=== PATIENT | male | born 1955 | race Caucasian/White ===

== ENCOUNTER 2017-03-10 08:40 | Observation (INO) | payer BC, OTHER ==
[2017-03-10] MEDS ORDERED: NORMAL SALINE 1,000 ML IV ONE ×2 (09:42→11:27)
--- OUTSIDE RECORDS SUMMARY | 2017-03-10 09:46 | XMS REPORT | Clinical Summary ---
:1955 Author Organization [employer] Address Unavailable [place] Patric[place] [address] Care Team Providers Name Role Phone Unavailable Primary Care Provider Unavailable Source Comments This disclosure is being made pursuant to the Bit9 program and maynot contain all information available regarding this patient.[facility] Allergies Not on File Current Medications Be aware that medications may not be up to date as of this document. Alwaysverify current medications with the patient. Prescription Sig. Disp. Refills Start Date End Date Status bicalutamide (CASODEX) Take 1 tablet by 90 tablet 3 10/02/2016 Active 50 MG tablet mouth 3 (three) times daily. fenofibrate (TRICOR) Take 1 tablet by 90 tablet 3 11/02/2016 Active 54 MG tablet mouth daily. metFORMIN (GLUCOPHAGE) Take 1 tablet by 180 tablet 1 12/22/2016 Active 500 MG tablet mouth 2 (two) times daily with meals. zolpidem (AMBIEN) 5 MG Take 1 tablet (5 30 tablet 0 12/24/2016 Active tablet mg total) by mouth nightly as needed for Sleep. lisinopril Take 1 tablet by 90 tablet 0 01/14/2017 Active (PRINIVIL,ZESTRIL) 10 mouth daily. MG tablet Active Problems Not on file Encounters Date Type Specialty Care Team Description 01/14/2017 Refill Family Medicine Caro Sorenson CMA 12/24/2016 Refill Family Medicine Covert, PARESH Suárez 12/22/2016 Refill Family Medicine Caro Sorenson CMA from Last 3 Months Family History Medical History Relation Name Comments Other Other Heart disease - All Family: Noted on 2010-06-16 15:37:48 Relation Name Status Comments Other Social History Tobacco Use Types Packs/Day Years Used Date Former Smoker Sex Assigned at Date Recorded Not on file Last Filed Vital Signs Not on file Plan of Treatment Health Maintenance Due Date Last Done Comments Hepatitis C Screening 1971 Tetanus/Pertussis (1 - Tdap) 1972 Well Adult Visit 2003 Zoster Vaccine 60+ 2013 Colon CA Screening-Colonoscopy 09/23/2016 09/23/2006 INFLUENZA IMMUNIZATION (#1) 2017 Results Not on filefrom Last 3 Months Insurance Payer Benefit Plan / Subscriber ID Type Phone Address Group [facility]AVA[facility] PPO [id number] PPO [phone] [id number] [place] [address] EMPLOYEE BENEFITS EMPLOYEE BENEFITS [id number] [phone] [address] [employer] [address] [place] [address] [phone] [place] [address]
--- OUTSIDE RECORDS SUMMARY | 2017-03-10 09:47 | XMS REPORT | Encounter Summary ---
:1955 Author Organization [employer] [place] [address] Care Team Providers Name Role Phone Unavailable Primary Care Provider Unavailable Reason for Visit Reason Comments Medication Refill Encounter Details Date Type Department Care Team Description 12/22/2016 [facility], [id number] [place] [address] [place] [address] Social History Tobacco Use Types Packs/Day Years Used Date Never Assessed Sex Assigned at Date Recorded Not on file as of this encounter Plan of Treatment Not on fileas of this encounter Visit Diagnoses Not on filein this encounter
--- OUTSIDE RECORDS SUMMARY | 2017-03-10 09:47 | XMS REPORT | Encounter Summary ---
:1955 Author Organization [employer] [place] [address] Care Team Providers Name Role Phone Unavailable Primary Care Provider Unavailable Reason for Visit Reason Comments Medication Refill Encounter Details Date Type Department Care Team Description 11/02/2016 Refill [facility] Caro Hawkins, [facility] Family Practice [address] [place] [address], [address] [place] [address] [place] [address] [phone] Social History Tobacco Use Types Packs/Day Years Used Date Never Assessed Sex Assigned at Date Recorded Not on file as of this encounter Plan of Treatment Not on fileas of this encounter Visit Diagnoses Not on filein this encounter
--- OUTSIDE RECORDS SUMMARY | 2017-03-10 09:47 | XMS REPORT | Encounter Summary ---
:1955 Author Organization [employer] [place] [address] Care Team Providers Name Role Phone Unavailable Primary Care Provider Unavailable Reason for Visit Reason Comments Medication Refill Encounter Details Date Type Department Care Team Description 11/23/2016 Refill [facility] Radha Duenas, sales project engineer [address] [place] [address], [address] [address] [place] [address] [phone] Social History Tobacco Use Types Packs/Day Years Used Date Never Assessed Sex Assigned at Date Recorded Not on file as of this encounter Plan of Treatment Not on fileas of this encounter Visit Diagnoses Not on filein this encounter
--- OUTSIDE RECORDS SUMMARY | 2017-03-10 09:47 | XMS REPORT | Encounter Summary ---
:1955 Author Organization [employer] [place] [address] Care Team Providers Name Role Phone Unavailable Primary Care Provider Unavailable Reason for Visit Reason Comments Medication Refill Encounter Details Date Type Department Care Team Description 01/14/2017 Refill [facility] Caro Hawkins, [facility] Family Practice [address] [place] [address], [address] [place] [address] [place] [address] [phone] Social History Tobacco Use Types Packs/Day Years Used Date Never Assessed Sex Assigned at Date Recorded Not on file as of this encounter Plan of Treatment Not on fileas of this encounter Visit Diagnoses Not on filein this encounter
--- OUTSIDE RECORDS SUMMARY | 2017-03-10 09:47 | XMS REPORT | Encounter Summary ---
:1955 Author Organization [employer] [place] [address] Care Team Providers Name Role Phone Unavailable Primary Care Provider Unavailable Reason for Visit Reason Comments Medication Refill Encounter Details Date Type Department Care Team Description 12/24/2016 Refill [facility] Charissa Oh RMA Family Practice [address] [place] [address], [address] [place] [address] [place] [address] [phone] Social History Tobacco Use Types Packs/Day Years Used Date Never Assessed Sex Assigned at Date Recorded Not on file as of this encounter Plan of Treatment Not on fileas of this encounter Visit Diagnoses Not on filein this encounter
--- OUTSIDE RECORDS SUMMARY | 2017-03-10 09:48 | XMS REPORT | Encounter Summary ---
:1955 Author Organization [employer] [place] [address] Care Team Providers Name Role Phone Unavailable Primary Care Provider Unavailable Reason for Visit Reason Comments Medication Refill Encounter Details Date Type Department Care Team Description 10/02/2016 Refill [facility] Caro Hawkins, [facility] Family Practice [address] [place] [address], [address] [place] [address] [place] [address] [phone] Social History Tobacco Use Types Packs/Day Years Used Date Never Assessed Sex Assigned at Date Recorded Not on file as of this encounter Plan of Treatment Not on fileas of this encounter Visit Diagnoses Not on filein this encounter
--- OUTSIDE RECORDS SUMMARY | 2017-03-10 09:48 | XMS REPORT | Encounter Summary ---
:1955 Author Organization [employer] [place] [address] Care Team Providers Name Role Phone Unavailable Primary Care Provider Unavailable Reason for Visit Reason Comments Medication Refill Encounter Details Date Type Department Care Team Description 10/02/2016 Refill [facility] Caro Hawkins, [facility] Family Practice [address] [place] [address], [address] [place] [address] [place] [address] [phone] Social History Tobacco Use Types Packs/Day Years Used Date Never Assessed Sex Assigned at Date Recorded Not on file as of this encounter Plan of Treatment Not on fileas of this encounter Visit Diagnoses Not on filein this encounter
--- OUTSIDE RECORDS SUMMARY | 2017-03-10 09:48 | XMS REPORT | Encounter Summary ---
:1955 Author Organization [employer] [place] [address] Care Team Providers Name Role Phone Unavailable Primary Care Provider Unavailable Reason for Visit Reason Comments Medication Refill Encounter Details Date Type Department Care Team Description 10/02/2016 Refill [facility] Charissa Oh RMA Family Practice [address] [place] [address], [address] [place] [address] [place] [address] [phone] Social History Tobacco Use Types Packs/Day Years Used Date Never Assessed Sex Assigned at Date Recorded Not on file as of this encounter Plan of Treatment Not on fileas of this encounter Visit Diagnoses Not on filein this encounter
--- NOTE | 2017-03-10 10:03 | ERNOTE ---
Integumentary HPI - General Presenting Symptoms: rash Time Seen by Provider: 03/10/17 09:17 Source: patient Exam Limitations: no limitations - Immun/Allergies/Home Medications Immunizations: IMMUNIZATION HX Immunizations Up to Date Yes History of Influenza Vaccine Yes Hx Pneumococcal Vaccination No Allergies/Adverse Reactions: Allergies Allergy/AdvReac Type Severity Reaction Status Date / Time oxycodone HCl AdvReac Verified 03/10/17 09:05 [From OxyContin] Home Medications: HOME MEDICATIONS Aspirin/Calcium Carbonate/Mag [Aspirin Buffered 325 mg Tab] 325 mg PO DAILY [Last Taken Unknown] Calc/D3/Mag/Zn/Janette/Joseph/Gualala [Calcium 600 mg Plus Vit D Tab] 1 each PO DAILY 02/07/14 [Last Taken Unknown] Calcium/Soyb Xt/Flax/B.cohosh [Black Rmmswt-Xnwoycph-Xsi Cplt] 1 each PO BID [Last Taken Unknown] Pravastatin Sodium [Pravachol] 40 mg PO DAILY 02/07/14 [Last Taken Unknown] metFORMIN HCL [Glucophage] 500 mg PO BID 02/07/14 [Last Taken Unknown] Bicalutamide [Casodex] 50 mg PO DAILY 03/10/17 [Last Taken Unknown] Venlafaxine HCl [Venlafaxine HCl ER] 150 mg PO DAILY 03/10/17 [Last Taken Unknown] - Patient's Past Medical History Patient History - Medical: Diabetes Type 2, Other - cellulitis, sepsis Patient History - Cardiac/Respiratory: Hypertension, Hyperlipidemia, Other Patient History - Cancer: Prostate Patient History - Surgical Procedures: Cataracts, Other Patient History - Other: None - Social History Living Situations: spouse Abuse History: No History of abuse Psych History: No pertinent hx Smoking Status: Former smoker Have you smoked in the past 12 months: No Do you dip or chew tobacco: No Alcohol Use: occasionally - Immunizations Immunizations Up to Date: Yes Hx Pneumococcal Vaccination: No History of Influenza Vaccine: Yes Physical Exam - Physical Exam General Appearance: Present: wd/wn, alert, moderate distress Head Exam: Present: normal inspection, no evidence of injury Eye Exam: Normal inspection: bilateral, PERRL: bilateral Ears, Nose, Throat: Present: normal ENT inspection, H, normal pharynx Neck: Present: normal inspection, nontender Respiratory: Present: no respiratory distress, normal breath sounds, no accessory muscle use, chest nontender, lungs clear Cardiovascular/Chest: Present: regular rate, rhythm, no murmur, normal peripheral pulses Gastrointestinal/Abdominal: Present: normal bowel sounds, nontender, nondistended, soft, no organomegaly Rectal Exam: Present: deferred Back Exam: Present: normal inspection, normal range of motion Extremity Exam: Present: normal inspection, non-tender, no edema, normal range of motion Neurological Exam: Present: alert, oriented, normal mood/affect Skin Exam: Present: other - patient has moderate erythema of the left lower extremity extending up into the abdomen and across to the other side of the abdomen Lymphatic Exam: Present: other - patient has no inguinal lymph nodes because of lymph node dissection secondary to his prostate cancer ED Progress - Results and Orders Patient's Lab Results:: I have reviewed the patient's lab results. - Vital Signs Patient's Vital Signs:: I have reviewed the patient's vital signs. Vital Signs: Vital Signs 03/10/17 08:57 Temperature 36.2 C L Pulse Rate 54 L Respiratory 18 Rate Blood Pressure 114/64 O2 Sat by Pulse 98 Oximetry - Progress/Reassessment Chief Complaint: Cellulitis Plan - Plan Plan: Patient has had cellulitis in the past and at that point he let it go and became septic. Because of the absence of lymph nodes and yielded a white count and elevated CRP patient be admitted for IV antibiotics in the form of Clindamycin. Departure Clinical Impression: Cellulitis Qualifiers: Site of cellulitis: extremity Site of cellulitis of extremity: lower extremity Laterality: left Qualified Code(s): L03.116 - Cellulitis of left lower limb - Departure Disposition: [facility] Condition: Fair Referrals: Mike Jones DO [Primary Care Provider] -
[2017-03-10 10:14] LABS: Hematocrit 37.5 % (42.0-52.0); Hemoglobin 13.1 gm/dL (13.5-18.0); Mean Cell Volume 89.5 fl (78-100); Mean Corpuscular Hemoglobin 31.3 pg (27-31); Mean Corpuscular Hgb Conc 34.9 g/dl (32-36); Mean Platelet Volume 13.1 fl (6.0-9.5); Neutrophil # 13.4 K/mm3 (1.3-6.0); Neutrophil % 85.7 % (42-75.0); Platelet Count 125 K/mm3 (150-450); Red Blood Count 4.19 M/mm3 (4.7-6.0); Red Cell Distribution Width 12.4 % (11.5-14.0); White Blood Count 15.7 K/mm3 (4.0-10.5)
[2017-03-10 10:23] LABS: Albumin * 4.1 gm/dl (3.4-5.0); Anion Gap 14.9 mmol/L (6.8-13.8); BUN/Creatinine Ratio 25.9 (9.0-21.6); Bilirubin, Total 0.5 mg/dL (0.0-1.1); CRP 6.8 mg/dL (0.0-0.9); Ca. Corrected For Albumin 8.6 mg/dL (8.4-10.2); Carbon Dioxide 25.3 mmol/L (24-32.6); Magnesium 2.1 mg/dL (1.2-2.8); Potassium 4.2 mmol/L (3.4-4.6); Total Protein 7.3 gm/dL (6.2-8.2)
[2017-03-10] MEDS ORDERED: CLINDAMYCIN PHOSPHATE 900 MG in DEXTROSE 5 % IN WATER 100 ML IV ONE ×2 (11:15)
--- OUTSIDE RECORDS SUMMARY | 2017-03-10 11:22 | XMS REPORT | Clinical Summary ---
:1955 Author Organization [employer] Address Unavailable [place] Pat[place] [address] Care Team Providers Name Role Phone Unavailable Primary Care Provider Unavailable Source Comments This disclosure is being made pursuant to the Okta program and maynot contain all information available regarding this patient.[facility] Allergies Not on File Current Medications Be [...] ID Type Phone Address Group [employer] [facility] PPO [id number] PPO [phone] [id number] [place] [address] EMPLOYEE BENEFITS EMPLOYEE BENEFITS [id number] [phone] [address] [employer] [address] [place] [address] [phone] [place] [address]
--- OUTSIDE RECORDS SUMMARY | 2017-03-10 11:23 | XMS REPORT | Encounter Summary ---
:1955 Author Organization [employer] [place] [address] Care Team Providers Name Role Phone Unavailable Primary Care Provider Unavailable Reason for Visit Reason Comments Medication Refill Encounter Details Date Type Department Care Team Description 12/24/2016 Refill [facility] Charissa Oh RMA Family Practice [address] [place] [address], [address] [place] [address] [place] [address] [phone] Social History Tobacco Use Types Packs/Day Years Used Date Never Assessed Sex Assigned at Date Recorded Not on file as of this encounter Plan of Treatment Not on fileas of this encounter Visit Diagnoses Not on filein this encounter
--- OUTSIDE RECORDS SUMMARY | 2017-03-10 11:23 | XMS REPORT | Encounter Summary ---
:1955 Author Organization [employer] [place] [address] Care Team Providers Name Role Phone Unavailable Primary Care Provider Unavailable Reason for Visit Reason Comments Medication Refill Encounter Details Date Type Department Care Team Description 01/14/2017 Refill [facility] Caro Hawkins, [facility] Family Practice [address] [place] [address], [address] [place] [address] [place] [address] [phone] Social History Tobacco Use Types Packs/Day Years Used Date Never Assessed Sex Assigned at Date Recorded Not on file as of this encounter Plan of Treatment Not on fileas of this encounter Visit Diagnoses Not on filein this encounter
--- OUTSIDE RECORDS SUMMARY | 2017-03-10 11:24 | XMS REPORT | Encounter Summary ---
:1955 Author Organization [employer] [place] [address] Care Team Providers Name Role Phone Unavailable Primary Care Provider Unavailable Reason for Visit Reason Comments Medication Refill Encounter Details Date Type Department Care Team Description 12/22/2016 [facility] [id number] [place] [address] [place] [address] Social History Tobacco Use Types Packs/Day Years Used Date Never Assessed Sex Assigned at Date Recorded Not on file as of this encounter Plan of Treatment Not on fileas of this encounter Visit Diagnoses Not on filein this encounter
--- OUTSIDE RECORDS SUMMARY | 2017-03-10 11:24 | XMS REPORT | Encounter Summary ---
:1955 Author Organization [employer] [place] [address] Care Team Providers Name Role Phone Unavailable Primary Care Provider Unavailable Reason for Visit Reason Comments Medication Refill Encounter Details Date Type Department Care Team Description 11/23/2016 Refill [facility] Radha Duenas, ring striker [address] [place] [address], [address] [address] [place] [address] [phone] Social History Tobacco Use Types Packs/Day Years Used Date Never Assessed Sex Assigned at Date Recorded Not on file as of this encounter Plan of Treatment Not on fileas of this encounter Visit Diagnoses Not on filein this encounter
--- OUTSIDE RECORDS SUMMARY | 2017-03-10 11:25 | XMS REPORT | Encounter Summary ---
:1955 Author Organization [employer] [place] [address] Care Team Providers Name Role Phone Unavailable Primary Care Provider Unavailable Reason for Visit Reason Comments Medication Refill Encounter Details Date Type Department Care Team Description 11/02/2016 Refill [facility] Caro Hawkins, [facility] Family Practice [address] [place] [address], [address] [place] [address] [place] [address] [phone] Social History Tobacco Use Types Packs/Day Years Used Date Never Assessed Sex Assigned at Date Recorded Not on file as of this encounter Plan of Treatment Not on fileas of this encounter Visit Diagnoses Not on filein this encounter
--- OUTSIDE RECORDS SUMMARY | 2017-03-10 11:26 | XMS REPORT | Encounter Summary ---
:1955 Author Organization [employer] [place] [address] Care Team Providers Name Role Phone Unavailable Primary Care Provider Unavailable Reason for Visit Reason Comments Medication Refill Encounter Details Date Type Department Care Team Description 10/02/2016 Refill [facility] Caro Hawkins, [facility] Family Practice [address] [place] [address], [address] [place] [address] [place] [address] [phone] Social History Tobacco Use Types Packs/Day Years Used Date Never Assessed Sex Assigned at Date Recorded Not on file as of this encounter Plan of Treatment Not on fileas of this encounter Visit Diagnoses Not on filein this encounter
--- OUTSIDE RECORDS SUMMARY | 2017-03-10 11:26 | XMS REPORT | Encounter Summary ---
:1955 Author Organization [employer] [place] [address] Care Team Providers Name Role Phone Unavailable Primary Care Provider Unavailable Reason for Visit Reason Comments Medication Refill Encounter Details Date Type Department Care Team Description 10/02/2016 Refill [facility] Caro Hawkins, [facility] Family Practice [address] [place] [address], [address] [place] [address] [place] [address] [phone] Social History Tobacco Use Types Packs/Day Years Used Date Never Assessed Sex Assigned at Date Recorded Not on file as of this encounter Plan of Treatment Not on fileas of this encounter Visit Diagnoses Not on filein this encounter
--- OUTSIDE RECORDS SUMMARY | 2017-03-10 11:26 | XMS REPORT | Encounter Summary ---
:1955 Author Organization [employer] [place] [address] Care Team Providers Name Role Phone Unavailable Primary Care Provider Unavailable Reason for Visit Reason Comments Medication Refill Encounter Details Date Type Department Care Team Description 10/02/2016 Refill [facility] Charissa Oh RMA Family Practice [address] [place] [address], [address] [place] [address] [place] [address] [phone] Social History Tobacco Use Types Packs/Day Years Used Date Never Assessed Sex Assigned at Date Recorded Not on file as of this encounter Plan of Treatment Not on fileas of this encounter Visit Diagnoses Not on filein this encounter
--- NOTE | 2017-03-10 13:05 | HP ---
Chief Complaint - Chief Complaint Date of Service: 03/10/17 Time of Service: 13:05 Chief Complaint: Leg swelling, pain, and redness History of Present Illness: Thong is a 61 yo male that presented to the [facility] ER this morning with left leg swelling from the hip down, red streaks of medial thigh down into calf. He has chronic lymphedema of bilateral lower extremity and has chronic swelling, but left is worse than normal. He was recently seen in the clinic with contact dermatitis from plant based contact (likely poison taran). He was given IM kenalog 60mg. His dermatitis has improved but he states he did have poison taran on his left leg that may have started this. He otherwise does not recall any sources of infection. He reports yesterday he felt tightness in his left thigh when he was lifting boxes but there was no redness. This morning he awoke to find the red streaks in his left leg and worse swelling. - Patient's Past Medical History Patient History - Medical: Diabetes Type 2, Other - cellulitis, sepsis Patient History - Cardiac/Respiratory: Hypertension, Hyperlipidemia, Other Patient History - Cancer: Prostate Patient History - Surgical Procedures: Cataracts Patient History - Other: None - Family History Mother Family History - Medical: , Other Family History - Cardiac/Respiratory: No pertinent hx Family History - Cancer: No pertinent family hx Father Family History - Medical: Family History - Cardiac/Respiratory: Coronary Heart Disease Family History - Cancer: No pertinent family hx - Social History Living Situations: spouse Abuse History: No History of abuse Psych History: No pertinent hx Smoking Status: Former smoker Have you smoked in the past 12 months: No Do you dip or chew tobacco: No Patient requests Smoking Cessation Consult: No Initiate information on Smoking Cessation: No Alcohol Use: occasionally - Immunizations Immunizations Up to Date: Yes Hx Pneumococcal Vaccination: No History of Influenza Vaccine: Yes Review Of Systems (GEN) - Review of Systems Generalized/Overall Review: Present: Chills. Absent: Weakness, Fever Respiratory: Absent: Cough, Shortness of Breath Cardiac: Present: Edema. Absent: Chest Pain, Palpitations Abdominal: Present: Nausea. Absent: Vomiting Genitourinary: Present: No Symptoms Reported Musculoskeletal: Present: No Symptoms Reported Neurological: Present: No Symptoms Reported Skin: Present: Change in Color Endocrine: Present: No Symptoms Reported Immunizations: IMMUNIZATION HX Immunizations Up to Date Yes History of Influenza Vaccine Yes Hx Pneumococcal Vaccination No Allergies/Adverse Reactions: Allergies Allergy/AdvReac Type Severity Reaction Status Date / Time oxycodone HCl AdvReac Verified 03/10/17 12:16 [From OxyContin] Home Medications: HOME MEDICATIONS Calc/D3/Mag/Zn/Janette/Joseph/Lamont [Calcium 600 mg Plus Vit D Tab] 1 each PO DAILY 02/07/14 [Last Taken 03/09/17 20:00] Calcium/Soyb Xt/Flax/B.cohosh [Black Vvvtfz-Xeanwjsm-Gkh Cplt] 1 each PO BID [Last Taken 03/10/17 08:00] Pravastatin Sodium [Pravachol] 40 mg PO DAILY 02/07/14 [Last Taken 03/09/17 20: 00] metFORMIN HCL [Glucophage] 500 mg PO BID 02/07/14 [Last Taken 03/10/17 08:00] Aspirin [Aspirin Chewable] 81 mg PO 03/10/17 [Last Taken 03/09/17 20:00] Bicalutamide [Casodex] 50 mg PO DAILY 03/10/17 [Last Taken 03/09/17 20:00] Lisinopril [Zestril] 10 mg PO 03/10/17 [Last Taken 03/09/17 20:00] Venlafaxine HCl [Venlafaxine HCl ER] 150 mg PO DAILY 03/10/17 [Last Taken 08:00] Exam - Exam Vital Signs: Vital Signs - Last Taken Temp 35.8 C L 03/10/17 11:29 Pulse 52 L 03/10/17 11:29 Resp 16 03/10/17 11:29 BP 136/64 03/10/17 11:29 Pulse Ox 98 03/10/17 11:29 Constitutional: Present: Alert, Oriented x3, Cooperative ENT Exam: Present: hearing grossly normal Eye Exam: bilateral eye: normal inspection Respiratory: Present: chest non-tender, lungs clear, normal breath sounds Cardiovascular/Chest: Present: regular rate, rhythm, no murmur Abdomen: Present: Normal bowel sounds, soft, nontender, nondistended Extremity: Present: lower extremity edema - Bilateral lower extremity edema 2+, worse on left Skin Exam: Present: warm/dry, other - red streaks from medial thigh to calf Lymphatic: Present: no adenopathy Appearance: Present: appropriate appearance, appropriate insight Eye contact: Present: cooperative, good eye contact, increased rate of speech Diagnostic Studies: Laboratory Results WBC 15.7 K/mm3 (4.0-10.5) H 03/10/17 09:50 RBC 4.19 M/mm3 (4.7-6.0) L 03/10/17 09:50 Hgb 13.1 gm/dL (13.5-18.0) L 03/10/17 09:50 Hct 37.5 % (42.0-52.0) L 03/10/17 09:50 MCV 89.5 fl (78-100) 03/10/17 09:50 MCH 31.3 pg (27-31) H 03/10/17 09:50 MCHC 34.9 g/dl (32-36) 03/10/17 09:50 RDW 12.4 % (11.5-14.0) 03/10/17 09:50 Plt Count 125 K/mm3 (150-450) L 03/10/17 09:50 MPV 13.1 fl (6.0-9.5) H 03/10/17 09:50 Immature Gran % (Auto) 0.80 % (0.001-0.429) H 03/10/17 09:50 Immature Gran # (Auto) 0.13 K/mm3 (0.000-0.0310) H 03/10/17 09:50 Neutrophils % 85.7 % (42-75.0) H 03/10/17 09:50 Lymphocytes % 6.3 % (20-51) L 03/10/17 09:50 Monocytes % 6.3 % (0.0-9) 03/10/17 09:50 Eosinophils % 0.6 % (0.0-3.0) 03/10/17 09:50 Basophils % 0.3 % (0.0-1.0) 03/10/17 09:50 Nucleated RBC % 0.0 k/mm3 (0-1) 03/10/17 09:50 Neutrophils # 13.4 K/mm3 (1.3-6.0) H 03/10/17 09:50 Lymphocytes # 1.0 k/mm3 (1.5-3.5) L 03/10/17 09:50 Monocytes # 1.0 k/mm3 (0.0-1.0) 03/10/17 09:50 Eosinophils # 0.1 k/mm3 (0.0-0.7) 03/10/17 09:50 Absolute Basophils 0.1 k/mm3 (0.0-0.1) 03/10/17 09:50 ESR 22 mm/hr (0-10) H 03/10/17 09:50 Sodium 139 mmol/L (132-142) 03/10/17 09:50 Plasma Sodium 140 mmol/L (130-142) 03/10/17 09:50 Potassium 4.2 mmol/L (3.4-4.6) 03/10/17 09:50 Chloride 103 mmol/L (97-106) 03/10/17 09:50 Carbon Dioxide 25.3 mmol/L (24-32.6) 03/10/17 09:50 Anion Gap 14.9 mmol/L (6.8-13.8) H 03/10/17 09:50 BUN 22 mg/dL (6-23) 03/10/17 09:50 Creatinine 0.85 mg/dL (0.4-1.4) 03/10/17 09:50 Est GFR (Non-Af Amer) 97 mL/min (60-130) 03/10/17 09:50 BUN/Creatinine Ratio 25.9 (9.0-21.6) H 03/10/17 09:50 Random Glucose 164 mg/dL (70-110) H 03/10/17 09:50 Lactic Acid, Venous 1.7 mmol/L (0.4-1.9) 03/10/17 09:50 Calcium 9.0 mg/dL (7.9-10.9) 03/10/17 09:50 Calcium Adj for Albumin 8.6 mg/dL (8.4-10.2) 03/10/17 09:50 Magnesium 2.1 mg/dL (1.2-2.8) 03/10/17 09:50 Total Bilirubin 0.5 mg/dL (0.0-1.1) 03/10/17 09:50 AST 18 U/L (0-48) 03/10/17 09:50 ALT 38 U/L (19-67) 03/10/17 09:50 Alkaline Phosphatase 59 U/L (50-170) 03/10/17 09:50 C-Reactive Prot, Quant 6.8 mg/dL (0.0-0.9) H 03/10/17 09:50 Total Protein 7.3 gm/dL (6.2-8.2) 03/10/17 09:50 Albumin 4.1 gm/dl (3.4-5.0) 03/10/17 09:50 Assessment/Plan - Procedures Results: Thong is a 61 yo male with: 1) Cellulitis of Left lower extremity. Suspect infection from bacterial seeding from his contact dermatitis. He has poor circulation in his lower extremities due to prostate surgery with lymphnode resection. He chronically has bilateral lower extremity edema which is currently worse. He has had difficulty clearing cellulitis in the past due to poor circulation. Will admit to observation. Will start IV clindamycin. Will plan to switch to oral clindamycin tomorrow if improving and discharge to home. Expect 1 midnight hospitalization. - Assessment/Plan (1) Cellulitis Problem: Acute Qualifiers: Site of cellulitis: extremity Site of cellulitis of extremity: lower extremity Laterality: left Qualified Code(s): L03.116 - Cellulitis of left lower limb (2) Chronic acquired lymphedema Problem: Acute
[2017-03-10] MEDS ORDERED: CLINDAMYCIN PHOSPHATE 900 MG in DEXTROSE 5 % IN WATER 100 ML IV SCH ×2 (13:30)
[2017-03-10] MEDS ORDERED: BICALUTAMIDE 50 MG TABLET PO SCH ×2 (14:00→21:00)
[2017-03-10] MEDS ORDERED: CALCIUM CARBONATE/VITAMIN D3 1 TAB TABLET PO SCH ×2 (14:00→21:00)
[2017-03-10] MEDS ORDERED: LISINOPRIL 10 MG TABLET PO SCH ×2 (14:00→21:00)
[2017-03-10] MEDS: ASPIRIN 81 MG TAB.CHEW PO SCH (15:01)
[2017-03-10] MEDS: VENLAFAXINE HCL 150 MG CAP.SR.24H PO SCH (15:01)
[2017-03-10] MEDS: CLINDAMYCIN PHOSPHATE 900 MG in DEXTROSE 5 % IN WATER 100 ML IV SCH ×2 (18:21)
[2017-03-10] MEDS: metFORMIN HCL 500 MG TABLET PO SCH (20:06)
[2017-03-10] MEDS: [UNRECOGNIZED DRUG - OTHER] PO SCH (20:07)
[2017-03-10] MEDS ORDERED: SIMVASTATIN 20 MG TABLET PO SCH (21:00)
[2017-03-10] MEDS ORDERED: ACETAMINOPHEN 325 MG TABLET PO PRN (22:27)
[2017-03-11] MEDS: CLINDAMYCIN PHOSPHATE 900 MG in DEXTROSE 5 % IN WATER 100 ML IV SCH ×6 (02:17→18:21)
[2017-03-11] MEDS: metFORMIN HCL 500 MG TABLET PO SCH (08:51)
[2017-03-11] MEDS: ASPIRIN 81 MG TAB.CHEW PO SCH (08:52)
[2017-03-11] MEDS: VENLAFAXINE HCL 150 MG CAP.SR.24H PO SCH (08:52)
[2017-03-11] MEDS: [UNRECOGNIZED DRUG - OTHER] PO SCH (08:52)
--- NOTE | 2017-03-11 08:54 | PN ---
Alberto Note - Interim Narrative: 03/11/17 08:53 Clinically better. Will have his 3rd dose at around 11 a.m. Will do a CBC then. If WBC going down will discharge on Oral Clindamycin after his 4th IV dose.
[2017-03-11 12:12] LABS: Hematocrit 36.5 % (42.0-52.0); Hemoglobin 12.4 gm/dL (13.5-18.0); Mean Cell Volume 92.4 fl (78-100); Mean Corpuscular Hemoglobin 31.4 pg (27-31); Mean Platelet Volume 13.4 fl (6.0-9.5); Neutrophil # 9.2 K/mm3 (1.3-6.0); Neutrophil % 79.9 % (42-75.0); Platelet Count 125 K/mm3 (150-450); Red Blood Count 3.95 M/mm3 (4.7-6.0); Red Cell Distribution Width 12.7 % (11.5-14.0); White Blood Count 11.5 K/mm3 (4.0-10.5)
--- NOTE | 2017-03-11 13:46 | DS ---
(1) Cellulitis Diagnosis(s): improved Problem: Acute Qualifiers: Site of cellulitis: extremity Site of cellulitis of extremity: lower extremity Laterality: left Qualified Code(s): L03.116 - Cellulitis of left lower limb (2) Chronic acquired lymphedema Problem: Acute Description of Stay: Thong Bryan, is a 61 yo male that presented to the [facility] ER on 2016 with left leg swelling from the hip down, red streaks of medial thigh down into calf. He has chronic lymphedema of bilateral lower extremity and has chronic swelling, but left is worse than normal. He was recently seen in the clinic with contact dermatitis from plant based contact (likely poison taran). He was given IM kenalog 60mg. His dermatitis has improved but he states he did have poison taran on his left leg that may have started this. He otherwise does not recall any sources of infection. He reports yesterday he felt tightness in his left thigh when he was lifting boxes but there was no redness. On the morning of admission, he awoke to find the red streaks in his left leg and worse swelling. He was admitted and was started on IV Clindamycin and has had 3 doses of it. Clinically , his red streaks and swelling has significantly improved. His WBC aslo went down to 11.5 from 15.7. He is stable to be discharged on oral Clindamycin 300 mg PO TID x 10 days after his 4th dose of IV Clindamycin tonight . Follow up with his PCP in 1 week.. Procedures Performed: none Discharge Disposition: Home self care Disposition: Home self-care Condition: Good Discharge Activity: Activity as tolerated Discharge Diet: Consistent carbs Referrals: Mike Jones DO [Primary Care Provider] - Additional Patient Instructions (free text): Follow up with Dr. Jones in 1 week. Prescriptions (Any new or edited meds): Clindamycin HCl [Cleocin HCl] 300 mg PO TID #30 capsule Complete Home Medications List: Complete Home Medication List: Calc/D3/Mag/Zn/Janette/Joseph/Tuleta [Calcium 600 mg Plus Vit D Tab] 1 each PO DAILY 02/07/14 Calcium/Soyb Xt/Flax/B.cohosh [Black Wkoutt-Buhfjqxf-Ett Cplt] 1 each PO BID Pravastatin Sodium [Pravachol] 40 mg PO DAILY 02/07/14 metFORMIN HCL [Glucophage] 500 mg PO BID 02/07/14 Aspirin [Aspirin Chewable] 81 mg PO 03/10/17 Bicalutamide [Casodex] 50 mg PO DAILY 03/10/17 Lisinopril [Zestril] 10 mg PO 03/10/17 Venlafaxine HCl [Venlafaxine HCl ER] 150 mg PO DAILY 03/10/17 Acetaminophen [Tylenol] 650 mg PO Q6H PRN tablet 03/11/17 Clindamycin HCl [Cleocin HCl] 300 mg PO TID #30 capsule 03/11/17
[2017-03-11 15:21] VITALS: BP 103/55
[2017-03-11] MEDS ORDERED: metFORMIN HCL 500 MG TABLET PO SCH (17:00)
== END 2017-03-11 19:15 | disposition home or self-care (01) ==
LOC: ER 08:40 → MS 11:18
PROVIDERS: ADMIT Family Medicine; ATTEND Family Medicine
DX: L03.116 Cellulitis of left lower limb (principal); E11.628 Type 2 diabetes mellitus with other skin complications; I89.0 Lymphedema, not elsewhere classified; Z79.84 Long term (current) use of oral hypoglycemic drugs; I10 Essential (primary) hypertension; E78.5 Hyperlipidemia, unspecified; Z87.891 Personal history of nicotine dependence
CPT/HCPCS: 36415; 80053; 83605; 83735; 85025; 85652; 86140; 87040; 96365; 96366; 96367; 99284; G0378

== ENCOUNTER 2017-04-16 10:03 | Day surgery (SDC) | payer BC, OTHER ==
[~2017-04-16 10:03] MED LIST: RINGER'S SOLUTION,LACTATED 1,000 ML IV PRN
--- NOTE | 2017-04-16 11:49 | OR ---
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 A flexible fiberoptic video colonoscope was introduced and advanced under direct vision without difficulty to the cecum. The usual landmarks were identified. Preparation was excellent and excellent views were obtained. The findings were of a normal cecum, ascending colon, hepatic flexure, transverse colon, splenic flexure, descending colon, sigmoid colon, the rectum had mild radiation proctitis over the prostate. A small probable hyperplastic rectal polyp was biopsied and completely removed. A few diverticuli were noted in the descending and sigmoid colon. The mucosal color, vasculature and texture were normal throughout. No suspicious masses were seen. The patient tolerated the procedure well without apparent complications and was discharged from the endoscopy suite in stable condition.
[2017-04-16] MEDS ORDERED: RINGER'S SOLUTION,LACTATED 1,000 ML IV ONE (12:00)
[2017-04-16 13:44] VITALS: BP 118/53
== END 2017-04-16 10:04 | disposition home or self-care (01) ==
LOC: AMB 10:03
PROVIDERS: ATTEND Specialist
PROC: 0DBP8ZX Excision of Rectum, Via Natural or Artificial Opening Endoscopic, Diagnostic (ICD-10-PCS; principal; 2017-04-16 10:40)
DX: Z12.11 Encounter for screening for malignant neoplasm of colon (principal); K62.1 Rectal polyp; K57.30 Diverticulosis of large intestine without perforation or abscess without bleeding; K62.7 Radiation proctitis; I10 Essential (primary) hypertension; E11.9 Type 2 diabetes mellitus without complications; E78.5 Hyperlipidemia, unspecified; F41.9 Anxiety disorder, unspecified; Z87.891 Personal history of nicotine dependence; Z68.28 Body mass index [BMI] 28.0-28.9, adult

== ENCOUNTER 2018-12-31 23:03 | Inpatient (IN) ==
[2018-12-31] MEDS ORDERED: NORMAL SALINE 1,000 ML IV ONE (23:10)
[2018-12-31 23:29] LABS: Hematocrit 35.7 % (42.0-52.0); Hemoglobin 11.9 gm/dL (13.5-18.0); Mean Cell Volume 87.7 fl (78-100); Mean Corpuscular Hemoglobin 29.2 pg (27-31); Mean Corpuscular Hgb Conc 33.3 g/dl (32-36); Mean Platelet Volume 12.4 fl (8-11.3); Neutrophil # 18.7 K/mm3 (1.3-6.0); Platelet Count 159 K/mm3 (150-450); Red Blood Count 4.07 M/mm3 (4.7-6.0); White Blood Count 20.6 K/mm3 (4.0-10.5)
[2018-12-31 23:40] LABS: Albumin * 3.7 gm/dl (3.4-5.0); Anion Gap 16.2 mmol/L (6.8-13.8); BUN/Creatinine Ratio 34.5 (9.0-21.6); Bilirubin, Total 0.3 mg/dL (0.0-1.1); Ca. Corrected For Albumin 9.3 mg/dL (8.4-10.2); Calcium * 9.4 mg/dL (7.9-10.9); Carbon Dioxide 25.2 mmol/L (24-32.6); Potassium 5.4 mmol/L (3.4-4.6); Total Protein 7.4 gm/dL (6.2-8.2)
[2018-12-31] MEDS ORDERED: PIPERACILLIN SODIUM/TAZOBACTAM 3.375 GM in DEXTROSE 5 % IN WATER 100 ML IV ONE ×2 (23:57)
[2018-12-31] MEDS ORDERED: VANCOMYCIN HCL 1 GM in DEXTROSE 5 % IN WATER 250 ML IV ONE ×2 (23:57)
--- NOTE | 2019-01-01 00:02 | ERNOTE ---
Lower Extremity HPI - Narrative Date of Service: 12/31/18 - General Lower Extremities Pain: hip: left, leg: left, knee: left, thigh: left, foot: left, ankle: left Time Seen by Provider: 12/31/18 23:05 Source: patient, family - Immun/Allergies/Home Medications Immunizations: IMMUNIZATION HX Immunizations Up to Date Yes History of Influenza Vaccine Yes Hx Pneumococcal Vaccination Yes Allergies/Adverse Reactions: Allergies Allergy/AdvReac Type Severity Reaction Status Date / Time oxycodone HCl AdvReac Severe HALLUCINATI Verified 12/31/18 23:13 [From OxyContin] ON Home Medications: HOME MEDICATIONS Aspirin [Aspirin Enteric Coated] 81 mg PO DAILY 04/06/17 [Last Taken 04/15/17] Black Cohosh 2 tab PO DAILY 04/06/17 [Last Taken 04/15/17] Calcium Carbonate [Calcium] 600 mg PO DAILY 04/06/17 [Last Taken 04/15/17] pravastatin 40 mg tablet 40 mg PO DAILY #90 tab 07/20/18 [Last Taken Unknown] Ibuprofen [Motrin] 800 mg PO TID PRN #60 tab 08/22/18 [Last Taken Unknown] metformin 500 mg tablet 1,000 mg PO BID #360 tab 10/03/18 [Last Taken Unknown] Erlotinib HCl 180 mg PO DAILY 10/05/18 [Last Taken Unknown] lisinopril 10 mg tablet 10 mg PO DAILY #90 tab 10/21/18 [Last Taken Unknown] temazepam 30 mg capsule 30 mg PO HS PRN #90 cap 10/21/18 [Last Taken Unknown] venlafaxine ER 150 mg capsule,extended release 24 hr 150 mg PO DAILY #90 cap 12/12/18 [Last Taken Unknown] clindamycin HCl 150 mg capsule 300 mg PO QID #80 cap 12/26/18 [Last Taken Unknown] gabapentin 300 mg capsule 300 mg PO TID #90 cap 12/26/18 [Last Taken Unknown] Cyclobenzaprine HCl 10 mg PO TID PRN 01/01/19 [Last Taken 12/31/18 20:00] - History of Present Illness Narrative: This is a 63-year-old gentleman with a history of frequent recurrent cellulitis involving the left leg. The patient is on a an immunosuppressant biologic medicine called Erlita for prostate cancer. He has had several episodes of cellulitis since being on that. Says he did not notice anything yesterday but this evening when he was getting ready for bed he noticed that his left leg was extremely warm and red. It had progressed all the way up to his iliac crest and suprapubic area on the left. It also started to involve the left side of his penis and scrotum. He had sepsis once before from cellulitis that was quite severe and at that time it went all the way up and started down the other leg. No fever symptoms but his checked him and he had a temp of 101.3 at home. Because he is on the immunosuppressant medicine anytime he has a fever he is instructed to go to the hospital. The patient denies having any significant pain. He denies chest pain shortness of breath nausea vomiting blurred vision diarrhea urinary symptoms or any other complaints. No open wounds that he is aware of. Review of Systems - Review of Systems Constitutional: Present: fever. Absent: weakness, fatigue, malaise EYE: Present: no symptoms reported ENT: Present: no symptoms reported Respiratory: Present: no symptoms reported Cardiology: Present: no symptoms reported Gastrointestinal/Abdominal: Present: no symptoms reported Genitourinary: Present: no symptoms reported Musculoskeletal: Present: other - Patient has chronic lymphedema in the left leg but it seems a little more swollen than usual Skin: Present: See HPI Neurological: Present: no symptoms reported Endocrine: Present: no symptoms reported Hematologic/Lymphatic: Present: no symptoms reported Psych: Present: no symptoms reported All Other Systems: All systems neg except as marked Medical History (Updated 01/01/19 @ 00:02 by Geovanny Last MD) Osteopenia (Chronic) Onset Date: Unknown Osteoarthritis (Chronic) Onset Date: Unknown Impaired fasting glucose (Chronic) Onset Date: Unknown Hypertriglyceridemia (Chronic) Onset Date: Unknown Hypertension (Chronic) Onset Date: Unknown Hyperlipidemia (Chronic) Onset Date: Unknown Type 2 diabetes mellitus without complications (Chronic) Onset Date: 12/28/11 Depression (Chronic) Onset Date: Unknown Arthritis of shoulder region, degenerative (Chronic) Onset Date: Unknown Degeneration of lumbar intervertebral disc (Chronic) Onset Date: Unknown Anxiety (Chronic) Onset Date: Unknown Anosmia (Chronic) Onset Date: Unknown due to a traumatic brain injury Ankle pain Onset Date: 07/11/12 Cellulitis and abscess of leg, except foot Onset Date: Unknown Gross hematuria Onset Date: Unknown Head injury Onset Date: Unknown Sepsis Onset Date: Unknown Diabetic eye exam Onset Date: 04/15/17 low risk for retinopathy Gout Onset Date: Unknown History of prostate cancer Onset Date: ~2010 Non-metastatic castrate resistant prostate cancer. History of Q1xT6TA Roshni 4+5=9 prostate cancer s/p aborted radical prostatectomy for positive lymph nodes in 02/2011. Received EBRT in 2010. Had a biochemical relapse in 2013 and responded to hormonal manipulations of GnRH agonist and bicalutamide. Hyperglycemia Onset Date: Unknown Sciatica Onset Date: Unknown Surgical History: Surgical History (Updated 02/21/18 @ 10:42 by Sonam Ramirez, BARBY) History of cataract extraction Onset Date: Unknown bilateral History of colonoscopy Onset Date: 10/05/06 10/05/2006: Dr. Murillo; hyperplastic polyp 04/16/2017: Dr. Skaggs; diverticulosis, mild radiation proctitis. hyperplastic polyp. Recheck 10 years. History of prostatectomy Onset Date: ~02/2011 radical History of transurethral resection of prostate Onset Date: 09/08/17 Meatal Dilation, cystoscopy with clot evacuation, bladder fulguration, tansurethral resection of prostate [facility] Dr Anne Family History: Family History (Updated 02/21/18 @ 10:47 by Sonam Ramirez RN) Brother Heart disease Brother , age 40 HIV (human immunodeficiency virus infection) Father , age 69 Heart disease Mother , age 82 Brain disorder Social History: Preferred Language Arabic Smoking Status Former smoker Abuse History No History of abuse Psych History Hx of Anxiety,Currently on Meds Alcohol Use none Drug Use none (Last Reviewed 12/27/18 @ 10:31 by Manuel Scanlon CMA) No Social History Section defined Physical Exam - Physical Exam General Appearance: Present: wd/wn, alert, no apparent distress Head Exam: Present: normal inspection, no evidence of injury Eye Exam: Normal inspection: bilateral, PERRL: bilateral, EOMI: bilateral Ears, Nose, Throat: Present: normal ENT inspection Neck: Present: normal inspection, nontender Respiratory: Present: no respiratory distress, normal breath sounds, lungs clear Cardiovascular/Chest: Present: regular rate, rhythm, no murmur Gastrointestinal/Abdominal: Present: nontender, nondistended, soft Male Genitals Exam: Present: other - Patient's scrotum and penis are normal with the exception of the skin, the left side has a very faint hazy erythematous discoloration. Back Exam: Present: normal inspection, no CVA tenderness, no vertebral tenderness Extremity Exam: Present: other - Patient has a trace of pretibial edema from the midfoot up to the knee. He has an extremely warm bright red rash circumferentially from the left iliac crests all the way down to the foot. It actually goes across the suprapubic area at the abdominal and pelvic skin. It stops at the skin fold there. There are scattered patches in the proximal right anterior thigh skin is well Neurological Exam: Present: alert, oriented, normal mood/affect, no motor/sensory deficits Skin Exam: Present: other - Please see the extremity exam Lymphatic Exam: Present: no adenopathy Progress - Results and Orders Patient's Lab Results:: I have reviewed the patient's lab results. - Vital Signs Patient's Vital Signs:: I have reviewed the patient's vital signs. Vital Signs: Vital Signs 12/31/18 23:09 Temperature 37.5 C Pulse Rate 76 Respiratory Rate 18 Blood Pressure 134/81 O2 Sat by Pulse Oximetry 99 - Progress/Reassessment Chief Complaint: Lower Extremity Pain/ Injury Plan - Plan Plan: 63-year-old gentleman on chemotherapy for prostate cancer with fever and symptoms of left leg cellulitis. Fairly quickly progressing. I am not convinced that this is a true infectious etiology, could this be a reaction to the medicine? Nevertheless he has had this before and it is responded to antibiotics, he does have a very high white blood cell count, I am going to put him on very broad coverage with vancomycin. Because of the immunosuppression I am also going to cover with Zosyn which will give some antipseudomonal coverage. This can be narrowed down after the first dose when we see how he responds. All of his previous blood cultures had no growth. Cultures have been ordered. Departure Clinical Impression: Cellulitis - Departure Disposition: Still a patient Condition: Fair Referrals: Mike Jones DO [Primary Care Provider] -
[2019-01-01] MEDS ORDERED: NORMAL SALINE 500 ML IV ONE ×2 (07:31→08:26)
--- NOTE | 2019-01-01 08:14 | HP ---
Chief Complaint - Chief Complaint Date of Service: 01/01/19 Time of Service: 08:14 Chief Complaint: cellulitis History of Present Illness: Geovanny Bryan is a 63-year-old white male patient of Dr. Jones on with past medical history of recurrent cellulitis, prostate cancer on immunotherapy, diabetes mellitus type 2, hypertension, hyperlipidemia, who was admitted on 01/01/2019 because of cellulitis. On the night of his admission the patient while getting ready to go to bed noticed that his left lower extremity was warm and red. It progressed later on all the way up to his left hip area and suprapubic area. He notices it also starting to involve his scrotum and pain is. His took his temperature and it was elevated at 101.3. Since he had a history of sepsis sepsis before from cellulitis they decided to go to the emergency room. He denies any pain of his lower extremity. He denies any chest pains, shortness of breath, nausea, vomiting diarrhea, constipation, increased frequency of urination, dysuria, any recent open skin areas. The patient says that he has been having on and off cellulitis 6-7 x since starting his Tarceva (erlotinib) for his prostate cancer. He had a prostatectomy sometime ago and had radiotherapy and lymph node dissection which makes him prone to lymphedema and cellulitis. He is still on oral clindamycin which was recently started. The patient was admitted for IV antibiotics. This morning he has been hypotensive in the 80/44 although he says his BP usually run in the low side SBP 90-110. Medical History (Updated 01/01/19 @ 08:59 by Teena Zamora MD) Osteopenia (Chronic) Onset Date: Unknown Osteoarthritis (Chronic) Onset Date: Unknown Impaired fasting glucose (Chronic) Onset Date: Unknown Hypertriglyceridemia (Chronic) Onset Date: Unknown Hypertension (Chronic) Onset Date: Unknown Hyperlipidemia (Chronic) Onset Date: Unknown Type 2 diabetes mellitus without complications (Chronic) Onset Date: 12/28/11 Depression (Chronic) Onset Date: Unknown Arthritis of shoulder region, degenerative (Chronic) Onset Date: Unknown Degeneration of lumbar intervertebral disc (Chronic) Onset Date: Unknown Anxiety (Chronic) Onset Date: Unknown Anosmia (Chronic) Onset Date: Unknown due to a traumatic brain injury Ankle pain Onset Date: 07/11/12 Cellulitis and abscess of leg, except foot Onset Date: Unknown Gross hematuria Onset Date: Unknown Head injury Onset Date: Unknown Sepsis Onset Date: Unknown Diabetic eye exam Onset Date: 04/15/17 low risk for retinopathy Gout Onset Date: Unknown History of prostate cancer Onset Date: ~2010 Non-metastatic castrate resistant prostate cancer. History of [id number] Roshni 4+5=9 prostate cancer s/p aborted radical prostatectomy for positive lymph nodes in 02/2011. Received EBRT in 2010. Had a biochemical relapse in 2013 and responded to hormonal manipulations of GnRH agonist and bicalutamide. Hyperglycemia Onset Date: Unknown Sciatica Onset Date: Unknown Surgical History: Surgical History (Updated 01/01/19 @ 08:14 by Teena Zamora MD) History of cataract extraction Onset Date: Unknown bilateral History of colonoscopy Onset Date: 10/05/06 10/05/2006: Dr. Murillo; hyperplastic polyp 04/16/2017: Dr. Skaggs; diverticulosis, mild radiation proctitis. hyperplastic polyp. Recheck 10 years. 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 Smoking Status Former smoker Have you smoked in the past 12 No months Abuse History No History of abuse Psych History Hx of Anxiety,Currently on Meds Alcohol Use none Drug Use none (Last Reviewed 12/27/18 @ 10:31 by Manuel Scanlon CMA) No Social History Section defined Review Of Systems (GEN) - Review of Systems Generalized/Overall Review: Present: Chills, Fever EENTM: Absent: Blurred Vision Respiratory: Absent: Cough, Shortness of Breath, Orthopnea Cardiac: Present: Edema. Absent: Chest Pain, Palpitations Abdominal: Absent: Nausea Genitourinary: Absent: Urgency, Frequency Musculoskeletal: Absent: Joint Pain, Back Pain Neurological: Present: Depressed. Absent: Headache Skin: Absent: Lesions, Other - erythema/warm LLE Immunizations: IMMUNIZATION HX Immunizations Up to Date Yes History of Influenza Vaccine Yes Hx Pneumococcal Vaccination Yes Allergies/Adverse Reactions: Allergies Allergy/AdvReac Type Severity Reaction Status Date / Time oxycodone HCl AdvReac Severe HALLUCINATI Verified 01/01/19 01:07 [From OxyContin] ON Home Medications: HOME MEDICATIONS Aspirin [Aspirin Enteric Coated] 81 mg PO DAILY 04/06/17 [Last Taken 04/15/17] Black Cohosh 2 tab PO DAILY 04/06/17 [Last Taken 04/15/17] Calcium Carbonate [Calcium] 600 mg PO DAILY 04/06/17 [Last Taken 04/15/17] pravastatin 40 mg tablet 40 mg PO DAILY #90 tab 07/20/18 [Last Taken Unknown] Ibuprofen [Motrin] 800 mg PO TID PRN #60 tab 08/22/18 [Last Taken Unknown] metformin 500 mg tablet 1,000 mg PO BID #360 tab 10/03/18 [Last Taken Unknown] Erlotinib HCl 180 mg PO DAILY 10/05/18 [Last Taken Unknown] lisinopril 10 mg tablet 10 mg PO DAILY #90 tab 10/21/18 [Last Taken Unknown] temazepam 30 mg capsule 30 mg PO HS PRN #90 cap 10/21/18 [Last Taken Unknown] venlafaxine ER 150 mg capsule,extended release 24 hr 150 mg PO DAILY #90 cap 12/12/18 [Last Taken Unknown] clindamycin HCl 150 mg capsule 300 mg PO TID #80 cap 12/26/18 [Last Taken Unknown] gabapentin 300 mg capsule 300 mg PO TID PRN #90 cap 12/26/18 [Last Taken Unknown] Cyclobenzaprine HCl 10 mg PO TID PRN 01/01/19 [Last Taken Unknown] L.acidoph,Paracasei, B.lactis [Probiotic] 1 ea PO DAILY 01/01/19 [Last Taken Unknown] Sennosides [Senokot] 8.6 mg PO DAILY 01/01/19 [Last Taken Unknown] Exam - Exam Vital Signs: Vital Signs - Last Taken Temp 36.9 C 01/01/19 07:40 Pulse 62 01/01/19 07:40 Resp 12 01/01/19 07:40 BP 80/44 L 01/01/19 07:40 Pulse Ox 96 01/01/19 07:40 Constitutional: Present: Alert, Oriented x3, Cooperative ENT Exam: Present: hearing grossly normal Eye Exam: bilateral eye: normal inspection, PERRL, EOMI Neck: Present: supple Respiratory: Present: normal breath sounds, No rales, No wheezing Cardiovascular/Chest: Present: regular rate, rhythm, no JVD, no murmur Abdomen: Present: Normal bowel sounds, soft, nontender, nondistended, other - mildly red suprapubic area Extremity: Present: no calf tenderness, swelling, other - erythema Skin Exam: Present: warm/dry Diagnostic Studies: Abnormal Lab Results 12/31/18 12/31/18 Range/Units 23:30 23:30 WBC 20.6 H (4.0-10.5) K/mm3 RBC 4.07 L (4.7-6.0) M/mm3 Hgb 11.9 L (13.5-18.0) gm/dL Hct 35.7 L (42.0-52.0) % MPV 12.4 H (8-11.3) fl Immature Gran # (Auto) 0.09 H (0.000-0.0310) K/mm3 Neutrophils % 91.0 H (42-75.0) % Lymphocytes % 5.8 L (20-51) % Neutrophils # 18.7 H (1.3-6.0) K/mm3 Lymphocytes # 1.19 L (1.5-3.5) k/mm3 Potassium 5.4 H D (3.4-4.6) mmol/L Anion Gap 16.2 H (6.8-13.8) mmol/L BUN 39 H D (6-23) mg/dL BUN/Creatinine Ratio 34.5 H (9.0-21.6) Random Glucose 178 H (70-110) mg/dL Laboratory Results WBC 20.6 K/mm3 (4.0-10.5) H 12/31/18 23:30 RBC 4.07 M/mm3 (4.7-6.0) L 12/31/18 23:30 Hgb 11.9 gm/dL (13.5-18.0) L 12/31/18 23:30 Hct 35.7 % (42.0-52.0) L 12/31/18 23:30 MCV 87.7 fl (78-100) 12/31/18 23: MCH 29.2 pg (27-31) 12/31/18 23: MCHC 33.3 g/dl (32-36) 12/31/18 23: RDW 13.0 % (11.5-14.0) 12/31/18 23: Plt Count 159 K/mm3 (150-450) 12/31/18 23: MPV 12.4 fl (8-11.3) H 12/31/18 23:30 Immature Gran % (Auto) 0.40 % (0.001-0.429) 12/31/18: Immature Gran # (Auto) 0.09 K/mm3 (0.000-0.0310) H 12/31/18 23:30 91.0 % (42-75.0) H 12/31/18 23:30 5.8 % (20-51) L 12/31/18 23: 2.4 % (0.0-9) 12/31/18 23: 0.1 % (0.0-3.0) 12/31/18 23: 0.3 % (0.0-1.0) 12/31/18: Nucleated RBC % 0.0 k/mm3 (0-1) 12/31/18 23:30 18.7 K/mm3 (1.3-6.0) H 12/31/18 23:30 1.19 k/mm3 (1.5-3.5) L 12/31/18 23: 0.5 k/mm3 (0.0-1.0) 12/31/18 23: 0.0 k/mm3 (0.0-0.7) 12/31/18: Absolute Basophils 0.1 k/mm3 (0.0-0.1) 12/31/18 23:30 Sodium 135 mmol/L (132-142) 12/31/18 23:30 136 mmol/L (130-142) 12/31/18 23:30 Potassium 5.4 mmol/L (3.4-4.6) H D 12/31/18 23:30 Chloride 99 mmol/L (97-106) 12/31/18 23:30 Carbon Dioxide 25.2 mmol/L (24-32.6) 12/31/18 23:30 16.2 mmol/L (6.8-13.8) H 12/31/18 23:30 BUN 39 mg/dL (6-23) H D 12/31/18 23:30 1.13 mg/dL (0.4-1.4) 12/31/18 23:30 Est GFR (Non-Af Amer) 69 mL/min (60-130) 12/31/18 23:30 34.5 (9.0-21.6) H 12/31/18 23:30 178 mg/dL (70-110) H 12/31/18 23:30 Calcium 9.4 mg/dL (7.9-10.9) 12/31/18 23:30 Calcium Adj for Albumin 9.3 mg/dL (8.4-10.2) 12/31/18 23:30 0.3 mg/dL (0.0-1.1) 12/31/18 23:30 AST 16 U/L (0-48) 12/31/18 23:30 ALT 26 U/L (19-67) 12/31/18 23:30 65 U/L (50-170) 12/31/18 23:30 7.4 gm/dL (6.2-8.2) 12/31/18 23:30 3.7 gm/dl (3.4-5.0) 12/31/18 23:30 Assessment/Plan - Assessment/Plan (1) Cellulitis Assessment: LLE. Will continue with IV Zosyn/Vanco until cultures come back. Problem: Acute (2) Hypotension Assessment: SBP in the 80. he denies diarrhea/N/V. denies being behind fluid intake. receiving IVF boluses. If not responding will transfer to ICU for vasopressor. He does admit that his BP is normally on the low side 90-110. r/o beginning sepsis. will add lactic acid and repeat CBC, CMP. Problem: Acute (3) History of prostate cancer Problem: Chronic (4) Hypertension Problem: Chronic Qualifiers: Hypertension type: essential hypertension Qualified Code(s): I10 - Essential (primary) hypertension (5) Hyperlipidemia Problem: Chronic Qualifiers: Hyperlipidemia type: unspecified Qualified Code(s): E78.5 - Hyperlipidemia, unspecified (6) Type 2 diabetes mellitus without complications Problem: Chronic Qualifiers: Diabetes mellitus longterm insulin use: without long term care pharmacist use Qualified Code(s): E11.9 - Type 2 diabetes mellitus without complications (7) Chronic acquired lymphedema Problem: Acute
[2019-01-01] MEDS ORDERED: GABAPENTIN 300 MG CAPSULE PO PRN (09:06)
[2019-01-01] MEDS ORDERED: NORMAL SALINE 1,000 ML IV ONE ×3 (09:14→20:00)
[2019-01-01 10:12] LABS: Hemoglobin 11.5 gm/dL (13.5-18.0); Mean Cell Volume 88.6 fl (78-100); Mean Corpuscular Hemoglobin 29.1 pg (27-31); Mean Corpuscular Hgb Conc 32.9 g/dl (32-36); Mean Platelet Volume 13.9 fl (8-11.3); Neutrophil # 12.8 K/mm3 (1.3-6.0); Neutrophil % 85.7 % (42-75.0); Platelet Count 154 K/mm3 (150-450); Red Blood Count 3.95 M/mm3 (4.7-6.0); Red Cell Distribution Width 13.2 % (11.5-14.0); White Blood Count 14.9 K/mm3 (4.0-10.5)
[2019-01-01] MEDS: SACCHAROMYCES BOULARDII 250 MG CAPSULE PO SCH ×2 (10:16→20:23)
[2019-01-01] MEDS: PIPERACILLIN SODIUM/TAZOBACTAM 3.375 GM in DEXTROSE 5 % IN WATER 100 ML IV SCH ×4 (10:17→16:53)
[2019-01-01 10:22] LABS: Albumin * 3.5 gm/dl (3.4-5.0); BUN/Creatinine Ratio 28.4 (9.0-21.6); Bilirubin, Total 0.4 mg/dL (0.0-1.1); Ca. Corrected For Albumin 9.1 mg/dL (8.4-10.2); Carbon Dioxide 25.1 mmol/L (24-32.6); Potassium 5.1 mmol/L (3.4-4.6); Total Protein 6.4 gm/dL (6.2-8.2)
[2019-01-01] MEDS: NORMAL SALINE 1,000 ML IV PRN ×2 (11:11→16:03)
[2019-01-01] MEDS: ENOXAPARIN SODIUM 40 MG/0.4 ML SYRG SC SCH (13:28)
[2019-01-01] MEDS: VANCOMYCIN HCL 0.75 GM in DEXTROSE 5 % IN WATER 250 ML IV SCH ×2 (13:29)
[2019-01-01] MEDS ORDERED: NORMAL SALINE 1,000 ML IV PRN ×2 (17:02→20:30)
[2019-01-02] MEDS: VANCOMYCIN HCL 0.75 GM in DEXTROSE 5 % IN WATER 250 ML IV SCH ×4 (01:56→13:38)
[2019-01-02] MEDS: PIPERACILLIN SODIUM/TAZOBACTAM 3.375 GM in DEXTROSE 5 % IN WATER 100 ML IV SCH ×6 (01:57→17:08)
[2019-01-02 06:18] LABS: Hemoglobin 10.2 gm/dL (13.5-18.0); Mean Cell Volume 90.1 fl (78-100); Mean Corpuscular Hemoglobin 28.7 pg (27-31); Mean Corpuscular Hgb Conc 31.9 g/dl (32-36); Mean Platelet Volume 13.1 fl (8-11.3); Neutrophil # 4.4 K/mm3 (1.3-6.0); Neutrophil % 66.7 % (42-75.0); Platelet Count 118 K/mm3 (150-450); Red Blood Count 3.55 M/mm3 (4.7-6.0); Red Cell Distribution Width 13.1 % (11.5-14.0); White Blood Count 6.7 K/mm3 (4.0-10.5)
[2019-01-02 07:20] LABS: Anion Gap 13.5 mmol/L (6.8-13.8); BUN/Creatinine Ratio 21.4 (9.0-21.6); Calcium * 8.3 mg/dL (7.9-10.9); Carbon Dioxide 24.1 mmol/L (24-32.6); Estimated Creat Clear 80.5; Potassium 4.6 mmol/L (3.4-4.6)
[2019-01-02] MEDS: ASPIRIN 81 MG TABLET.DR PO SCH (08:38)
[2019-01-02] MEDS: VENLAFAXINE HCL 150 MG CAP.SR.24H PO SCH (08:39)
[2019-01-02] MEDS: NON-FORMULARY 1 DOSE DOSE (Calcium Carbonate [Calcium] 500 MG) PO SCH (08:39)
[2019-01-02] MEDS: SACCHAROMYCES BOULARDII 250 MG CAPSULE PO SCH ×2 (08:39→20:48)
[2019-01-02] MEDS: SENNOSIDES 8.6 MG TABLET PO SCH (08:39)
[2019-01-02] MEDS ORDERED: CALCIUM CARBONATE 500 MG TAB.CHEW PO SCH (09:00)
[2019-01-02] MEDS ORDERED: ACIDOPH PARACASEI B LACTIS PO SCH (09:00)
[2019-01-02] MEDS: ENOXAPARIN SODIUM 40 MG/0.4 ML SYRG SC SCH (13:36)
[2019-01-03] MEDS: VANCOMYCIN HCL 0.75 GM in DEXTROSE 5 % IN WATER 250 ML IV SCH ×4 (01:43→15:32)
[2019-01-03] MEDS: PIPERACILLIN SODIUM/TAZOBACTAM 3.375 GM in DEXTROSE 5 % IN WATER 100 ML IV SCH ×4 (01:45→09:59)
--- NOTE | 2019-01-03 08:26 | PN ---
Subjective - Date and Time Seen Date: 01/02/19 Time: 08:30 Subjective Narrative: Thong reports pain is improved, redness is better. No fever, chills, nausea, or vomiting. Objective - Vitals Vitals: Last Vital Signs Selected Entries 01/02/19 10:34 Temperature 36.6 C Pulse Rate 51 L Respiratory Rate 18 Blood Pressure 133/70 O2 Sat by Pulse Oximetry 98 Oxygen Delivery Method Room Air - Exam Constitutional: Present: Alert, Oriented x3, Cooperative ENT Exam: Present: hearing grossly normal Respiratory: Present: lungs clear, normal breath sounds Cardiovascular/Chest: Present: regular rate, rhythm, no murmur Abdomen: Present: Normal bowel sounds, soft, nontender, nondistended Skin Exam: Present: other - Erythema of left lower leg. Erythema has withdrawn from line of demarcation. No drainage. Appearance: Present: appropriate appearance, appropriate insight Eye contact: Present: cooperative, good eye contact, normal speech Assessment/Plan Plan Narrative: Cellilitis is improved. However he needs to continue IV antibiotics today as he has had a long course of cellulitis with failed outpatient treatment. Will continue IV antibiotics today and if he continues to improve will plan to discharge tomorrow on oral antibiotics. - Problems/Diagnosis (1) Cellulitis Problem: Acute Qualifiers: Site of cellulitis: extremity Site of cellulitis of extremity: lower extremity Laterality: left Qualified Code(s): L03.116 - Cellulitis of left lower limb
[2019-01-03 08:49] LABS: Hematocrit 32.2 % (42.0-52.0); Hemoglobin 10.8 gm/dL (13.5-18.0); Mean Cell Volume 87.7 fl (78-100); Mean Corpuscular Hemoglobin 29.4 pg (27-31); Mean Corpuscular Hgb Conc 33.5 g/dl (32-36); Neutrophil # 3.3 K/mm3 (1.3-6.0); Neutrophil % 65.5 % (42-75.0); Platelet Count 130 K/mm3 (150-450); Red Blood Count 3.67 M/mm3 (4.7-6.0); Red Cell Distribution Width 12.8 % (11.5-14.0); White Blood Count 5.1 K/mm3 (4.0-10.5)
[2019-01-03 09:04] LABS: Albumin * 2.9 gm/dl (3.4-5.0); Anion Gap 13.4 mmol/L (6.8-13.8); BUN/Creatinine Ratio 20.9 (9.0-21.6); Bilirubin, Total 0.2 mg/dL (0.0-1.1); Ca. Corrected For Albumin 9.2 mg/dL (8.4-10.2); Calcium * 8.6 mg/dL (7.9-10.9); Carbon Dioxide 26.2 mmol/L (24-32.6); Potassium 4.6 mmol/L (3.4-4.6); Total Protein 6.3 gm/dL (6.2-8.2)
[2019-01-03] MEDS: VENLAFAXINE HCL 150 MG CAP.SR.24H PO SCH (09:25)
[2019-01-03] MEDS: SACCHAROMYCES BOULARDII 250 MG CAPSULE PO SCH (09:25)
[2019-01-03] MEDS: ASPIRIN 81 MG TABLET.DR PO SCH (09:25)
[2019-01-03] MEDS: SENNOSIDES 8.6 MG TABLET PO SCH (09:25)
[2019-01-03] MEDS: NON-FORMULARY 1 DOSE DOSE (Calcium Carbonate [Calcium] 500 MG) PO SCH (09:26)
[2019-01-03] MEDS: ENOXAPARIN SODIUM 40 MG/0.4 ML SYRG SC SCH (12:28)
[2019-01-03] MEDS ORDERED: VANCOMYCIN HCL LEVEL XX ONE (12:30)
--- NOTE | 2019-01-03 12:31 | DS ---
(1) Cellulitis Problem: Acute Qualifiers: Site of cellulitis: extremity Site of cellulitis of extremity: lower extremity Laterality: left Qualified Code(s): L03.116 - Cellulitis of left lower limb Description of Stay: Geovanny is a 63 yo male with PMH of Prostate CA with chronic lower extremity lymphedema secondary to prostate cancer treatment. He has had multiple episodes of lower extremity cellulitis in the past. He has been treated with clindamycin as outpatient for a few weeks before being admitted to the hospital with failed outpatient treatment. He was started on zosyn and vancomycin and improved. He will be continued on another 7 days of augmentin. He will follow up in clinic next week. Procedures Performed: none Results and Findings: Pending Mircobiology Results 12/31/18 00:00 Blood Blood Culture - Preliminary NO GROWTH AFTER 48 HOURS 12/31/18 23:30 Blood Blood Culture - Preliminary NO GROWTH AFTER 48 HOURS Lab Pending Results 12/31/18 23:30: WBC 20.6 H, RBC 4.07 L, Hgb 11.9 L, Hct 35.7 L, MCV 87.7, MCH 29.2, MCHC 33.3, RDW 13.0, Plt Count 159, MPV 12.4 H, Immature Gran % (Auto) 0.40, Immature Gran # (Auto) 0.09 H, Neutrophils % 91.0 H, Lymphocytes % 5.8 L, Monocytes % 2.4, Eosinophils % 0.1, Basophils % 0.3, Nucleated RBC % 0.0, Neutrophils # 18.7 H, Lymphocytes # 1.19 L, Monocytes # 0.5, Eosinophils # 0.0, Absolute Basophils 0.1 12/31/18 23:30: Sodium 135, Plasma Sodium 136, Potassium 5.4 H D, Chloride 99, Carbon Dioxide 25.2, Anion Gap 16.2 H, BUN 39 H D, Creatinine 1.13, Est GFR (Non-Af Amer) 69, BUN/Creatinine Ratio 34.5 H, Random Glucose 178 H, Calcium 9.4, Calcium Adj for Albumin 9.3, Total Bilirubin 0.3, AST 16, ALT 26, Alkaline Phosphatase 65, Total Protein 7.4, Albumin 3.7 01/01/19 08:39: Lactic Acid, Venous 1.9 01/01/19 08:39: WBC 14.9 H D, RBC 3.95 L, Hgb 11.5 L, Hct 35.0 L, MCV 88.6, MCH 29.1, MCHC 32.9, RDW 13.2, Plt Count 154, MPV 13.9 H, Immature Gran % (Auto) 0.40, Immature Gran # (Auto) 0.06 H, Neutrophils % 85.7 H, Lymphocytes % 9.7 L, Monocytes % 3.6, Eosinophils % 0.3, Basophils % 0.3, Nucleated RBC % 0.0, Neutrophils # 12.8 H, Lymphocytes # 1.44 L, Monocytes # 0.5, Eosinophils # 0.0, Absolute Basophils 0.1 01/01/19 08:39: Sodium 140, Plasma Sodium 141, Potassium 5.1 H, Chloride 104, Carbon Dioxide 25.1, Anion Gap 16.0 H, BUN 29 H, Creatinine 1.02, Est GFR (Non- Af Amer) 78, BUN/Creatinine Ratio 28.4 H, Random Glucose 150 H, Calcium 9.0, Calcium Adj for Albumin 9.1, Total Bilirubin 0.4, AST 15, ALT 22, Alkaline Phosphatase 55, Total Protein 6.4, Albumin 3.5 01/02/19 05:50: WBC 6.7 D, RBC 3.55 L, Hgb 10.2 L, Hct 32.0 L, MCV 90.1, MCH 28.7, MCHC 31.9 L, RDW 13.1, Plt Count 118 L, MPV 13.1 H, Immature Gran % (Auto) 0.50 H, Immature Gran # (Auto) 0.03, Neutrophils % 66.7, Lymphocytes % 21.8, Monocytes % 7.8, Eosinophils % 2.3, Basophils % 0.9, Nucleated RBC % 0.0, Neutrophils # 4.4, Lymphocytes # 1.45 L, Monocytes # 0.5, Eosinophils # 0.2, Absolute Basophils 0.1 01/02/19 05:50: B-Natriuretic Peptide 1367 H 01/02/19 05:55: Sodium 142, Plasma Sodium 143 H, Potassium 4.6, Chloride 109 H, Carbon Dioxide 24.1, Anion Gap 13.5, BUN 18, Creatinine 0.84, Est GFR (Non-Af Amer) 97 D, BUN/Creatinine Ratio 21.4, Random Glucose 166 H, Calcium 8.3 01/03/19 08:36: WBC 5.1 D, RBC 3.67 L, Hgb 10.8 L, Hct 32.2 L, MCV 87.7, MCH 29.4, MCHC 33.5, RDW 12.8, Plt Count 130 L, MPV 13.0 H, Immature Gran % (Auto) 0.60 H, Immature Gran # (Auto) 0.03, Neutrophils % 65.5, Lymphocytes % 21.2, Monocytes % 8.5, Eosinophils % 3.2 H, Basophils % 1.0, Nucleated RBC % 0.0, Neutrophils # 3.3, Lymphocytes # 1.07 L, Monocytes # 0.4, Eosinophils # 0.2, Absolute Basophils 0.1 01/03/19 08:36: Sodium 139, Plasma Sodium 142, Potassium 4.6, Chloride 104, Carbon Dioxide 26.2, Anion Gap 13.4, BUN 19, Creatinine 0.91, Est GFR (Non-Af Amer) 89, BUN/Creatinine Ratio 20.9, Random Glucose 264 H D, Calcium 8.6, Calcium Adj for Albumin 9.2, Total Bilirubin 0.2, AST 13, ALT 19, Alkaline Phosphatase 54, Total Protein 6.3, Albumin 2.9 L Discharge Location: Home Disposition: Home self-care Condition: Fair Discharge Activity: Activity as tolerated Discharge Diet: Low salt Referrals: Mike Jones DO [Primary Care Provider] - One Week Problem Oriented Discharge Instructions to Patient/Family: Cellulitis, Adult, [id number] Additional Patient Instructions (free text): -Please make TCM appointment unless custodial discharge. Thank you! Shelly at [facility] [phone]. Prescriptions (Any new or edited meds): Amox Tr/Potassium Clavulanate [Augmentin 875-125 Tablet] 875 mg PO Q12H #14 tab Complete Home Medications List: Complete Home Medication List: Aspirin [Aspirin Enteric Coated] 81 mg PO DAILY 04/06/17 Black Cohosh 2 tab PO DAILY 04/06/17 Calcium Carbonate [Calcium] 600 mg PO DAILY 04/06/17 pravastatin 40 mg tablet 40 mg PO DAILY #90 tab 07/20/18 Ibuprofen [Motrin] 800 mg PO TID PRN #60 tab 08/22/18 metformin 500 mg tablet 1,000 mg PO BID #360 tab 10/03/18 Erlotinib HCl 180 mg PO DAILY 10/05/18 lisinopril 10 mg tablet 10 mg PO DAILY #90 tab 10/21/18 temazepam 30 mg capsule 30 mg PO HS PRN #90 cap 10/21/18 venlafaxine ER 150 mg capsule,extended release 24 hr 150 mg PO DAILY #90 cap 0 12/12/18 clindamycin HCl 150 mg capsule 300 mg PO TID #80 cap 12/26/18 gabapentin 300 mg capsule 300 mg PO TID PRN #90 cap 12/26/18 Cyclobenzaprine HCl 10 mg PO TID PRN 01/01/19 L.acidoph,Paracasei, B.lactis [Probiotic] 1 ea PO DAILY 01/01/19 Sennosides [Senokot] 8.6 mg PO DAILY 01/01/19 Amox Tr/Potassium Clavulanate [Augmentin 875-125 Tablet] 875 mg PO Q12H #14 tab 01/03/19
[2019-01-03 15:36] VITALS: BP 116/59
== END 2019-01-03 14:10 | disposition home or self-care (01) | DRG 603 ==
LOC: ER 23:03 → MS 01-01 00:05
PROVIDERS: ADMIT Internal Medicine; ATTEND Family Medicine
CPT/HCPCS: 36415; 80048; 80053; 83519; 83605; 83880; 85025; 87040; 96360; 99285